=== PATIENT | male | born 1955 | race Caucasian/White ===

== ENCOUNTER 2020-12-09 12:36 | Emergency (ER) | payer MEDICARE ==
[~2020-12-09] VITALS: Ht 172.7 cm; Wt 84.1 kg
[2020-12-09 13:05] VITALS: BP 125/70; TEMP 99.1
[2020-12-09 13:45] VITALS: PULSE 80
== END 2020-12-09 13:45 | disposition home or self-care (01) ==
LOC: COL.ER 12:36
DX: S61.210A Laceration without foreign body of right index finger without damage to nail, initial encounter (principal); Z23 Encounter for immunization; W26.0XXA Contact with knife, initial encounter